=== PATIENT | male | born 1990 | race Caucasian/White ===

== ENCOUNTER 2016-11-03 14:51 | Emergency (ER) | payer SELFPAY ==
--- NOTE | 2016-11-03 15:01 | EDPHY ---
H & P Stated Complaint: Exacerbation of sciatica while longboarding;no fall Time Seen by Provider: 11/03/16 14:59 HPI/ROS: CHIEF COMPLAINT: HISTORY OF PRESENT ILLNESS: 26-year-old male history of chronic low back pain, chronic left lower extremity radiculopathy , visiting from [place], was skateboarding today and as he was skateboarding, started to lose control and attempted to catch himself, felt immediate pain in his left lumbar region. There is no fall, no axial loading, no direct trauma. He has no midline pain. He has his continued left lower extremity radiculopathy which is at its baseline. No incontinence. No retention. No saddle anesthesia. No fever or chills. No chest pain. No back pain. No abdominal pain. No genitalia injury. no footdrop.He has previously taken steroids for acute exacerbation had no adverse/allergic reactions. PRIMARY CARE PROVIDER: in [place] REVIEW OF SYSTEMS: A ten point review of systems was performed and is negative with the exception of the items mentioned in the HPI PAST MEDICAL & SURGICAL HISTORY: chronic low back pain and left lower extremity radiculopathy SOCIAL HISTORY:visiting from [place] PHYSICAL EXAM (Prior to examination, patient consented to physical exam, hands were washed and my usual and customary physical exam procedures followed) 1) GENERAL: Well-developed, well-nourished, alert and oriented. Appears uncomfortable 2) HEAD: Normocephalic, atraumatic 3) HEENT: Pupils equal, round, reactive to light bilaterally. Sclera anicteric. Nasopharynx, oropharynx, clear, no lesions. 4) NECK: Full range of motion, no meningeal signs. 5) LUNGS: Clear auscultation bilaterally, no wheezes, no rhonchi, no retractions. 6) HEART: Regular rate and rhythm, no murmur, no heave, no gallop. 7) ABDOMEN: No guarding, no rebound, no focal tenderness, negative McBurney's, 8) MUSCULOSKELETAL: Moving all extremities, no focal areas of tenderness, no obvious trauma. No peripheral edema or discoloration. 9) BACK: tender to palpation left paraspinous muscle. No CVA tenderness, no midline vertebral tenderness, no fluctuance, no step-off, no obvious trauma, no visual or palpable abnormality. Patella, Achilles reflexes intact to bilateral strength 5/5. Positive straight leg lift test. 10) SKIN: No rash, no petechiae. DIFFERENTIAL DIAGNOSIS: [In no particular order, including but not limited to, fracture, sprain/strain, cauda equina, spinal infectious etiology. MEDICAL DECISION MAKING Lower index of suspicion for cauda equina, epidural abscess, epidural hematoma, lumbar myositis, diskitis, as the patient is neurologically intact in the lower extremities, has patella and Achilles reflexes intact and equal bilaterally, has no neurologic deficits, no incontinence, no retention, no midline pain, no fluctuance, afebrile, no flulike symptoms. Pain may be secondary to muscular strain, may be secondary to discogenic etiology. At this point I do not identify definitive indication for emergent MRI, however patient may necessitate this on an outpatient basis. Doubt lumbar fracture in absence of midline pain and/or direct trauma or fall. Patient given acute back pain precautions. Patient verbalizes understanding of discharge instructions. I believe him to be a competent decision-makers. All questions and concerns have been addressed by me. Ample opportunity for questions have been provided . The patient understands that this diagnosis is provisional and can never be 100% accurate. Usual and customary warnings were given concerning the clinical impression and all the patient's questions were answered. The patient was instructed to return to the emergency department should her symptoms worsen or return, or develop any new symptoms, otherwise to followup as directed in discharge instructions. - Personal History Current Tetanus Diphtheria and Acellular Pertussis (TDAP): Yes - Medical/Surgical History Other PMH: sciatica (chronic) - Social History Smoking Status: Current every day smoker Constitutional: Initial Vital Signs Temperature (C) 36.6 C 11/03/16 14:53 Heart Rate 108 H 11/03/16 14:53 Respiratory Rate 18 11/03/16 14:53 Blood Pressure 148/97 H 11/03/16 14:53 O2 Sat (%) 95 11/03/16 14:53 O2 Delivery Mode Room Air Allergies/Adverse Reactions: No Known Allergies Allergy (Unverified 11/03/16 14:57) Home Medications: Medication Instructions Recorded Hydrocodone/APAP 5/325 [[place] 1 tab PO Q6 PRN #15 tab 11/03/16 5/325 (RX)] methylPREDNISolone [Medrol Dose 4 mg PO DAILY #1 ea 11/03/16 Juan C] Departure - Departure Disposition: Home, Routine, Self-Care Clinical Impression: Acute exacerbation of chronic low back pain Condition: Good Instructions: Acute Low Back Pain (ED) Additional Instructions: Seek medical attention if you develop new or worsening pain, if you develop bladder or bowel dysfunction, numbness around your perineum, foot drop, or any other symptoms that concern you. Prescriptions: Hydrocodone/APAP 5/325 [[place] 5/325 (RX)] 1 tab PO Q6 PRN #15 tab PRN Reason: Pain, Severe methylPREDNISolone [Medrol Dose Juan C] 4 mg PO DAILY #1 ea
[2016-11-03] MEDS ORDERED: OXYCODONE/APAP 5/325 TAB PO ONE (15:11)
[2016-11-03] MEDS ORDERED: KETOROLAC 30 MG/1 ML SDV IM ONE (15:11)
[2016-11-03 15:54] VITALS: BP 130/80; PULSE 72; RESP 16; TEMP 97.7; O2SAT 96
== END 2016-11-03 15:57 | disposition home or self-care (01) ==
DX: M54.5 Low back pain (principal); G89.29 Other chronic pain; F17.200 Nicotine dependence, unspecified, uncomplicated
CPT/HCPCS: J1885